=== PATIENT | male | born 1970 | race Caucasian/White ===

== ENCOUNTER → 2016-11-26 | Outpatient (CLI) | payer MEDICARE ==
[~2016-11-26] VITALS: Ht 175.3 cm; Wt 138.5 kg
[~2016-11-26] MED LIST: DILANTIN30 MG
[2016-11-26 15:42] VITALS: BP 136/90
== END ==
LOC: LAB 11:56 → AMSURD 11:56
DX: M79.662 Pain in left lower leg (principal); R79.1 Abnormal coagulation profile; R22.42 Localized swelling, mass and lump, left lower limb
CPT/HCPCS: J1650

== ENCOUNTER → 2016-11-27 | Outpatient (CLI) | payer MEDICARE ==
[2016-11-26 15:42] VITALS: BP 136/90
== END ==
LOC: RAD 10:52
DX: R79.1 Abnormal coagulation profile (principal); M79.89 Other specified soft tissue disorders

== ENCOUNTER → 2019-02-08 | Day surgery (SDC) | payer MEDICARE ==
[2016-11-26 15:42] VITALS: BP 136/90
== END ==
LOC: MSO 08:14
DX: Z12.11 Encounter for screening for malignant neoplasm of colon (principal); I10 Essential (primary) hypertension; E66.9 Obesity, unspecified
CPT/HCPCS: 00812; J2250; J2704; J3010; J7120

== ENCOUNTER 2019-10-25 20:55 | Emergency (ER) | payer MEDICARE ==
[2019-10-25] MEDS ORDERED: MAXZIDE-25MG TA1 TAB PO (21:09)
[2019-10-25] MEDS ORDERED: DILANTIN 100MG100 MG PO (21:09)
[2019-10-25] MEDS ORDERED: PREDNISONE20 M1 PO (22:29)
[2019-10-25] MEDS ORDERED: BENADRYL PO (22:29)
[2019-10-25] MEDS ORDERED: ZYRTEC10 M3 PO (22:29)
[2019-10-25 22:35] VITALS: BP 161/94
== END 2019-10-25 22:36 | disposition home or self-care (01) ==
LOC: ED 20:55
DX: T63.461A Toxic effect of venom of wasps, accidental (unintentional), initial encounter (principal); I10 Essential (primary) hypertension; Z23 Encounter for immunization
CPT/HCPCS: 90714; J7512

== ENCOUNTER 2021-04-27 18:37 | Emergency (ER) | payer MEDICARE ==
[~2021-04-27] VITALS: Ht 175.3 cm; Wt 150.0 kg
[~2021-04-27 18:37] MED LIST changes: +BENADRYL PO; +DILANTIN 100MG100 MG PO; +MAXZIDE-25MG TA1 TAB PO; +PREDNISONE20 M1 PO; +ZYRTEC10 M3 PO
[2021-04-27 19:22] LABS: HEMATOCRIT 41.7 % (42.0-52.0); HEMOGLOBIN 13.5 g/dL (13.5-18.0); LYMPH# 1.12 K/mm3 (1.50-4.00); MEAN CELL VOLUME 86 fl (78-100); MEAN CORPUSCULAR HEMOGLOBIN 28 pg (27-31); MEAN CORPUSCULAR HGB CONC 32 g/dL (33-37); MEAN PLATELET VOLUME 9.3 fl (7.4-10.4); MONO # 0.31 K/mm3 (0.20-0.80); NEU # 3.19 K/mm3 (1.40-6.50); PLATELET COUNT 124 K/mm3 (130-400); RED BLOOD COUNT 4.88 M/mm3 (4.20-5.60); RED CELL DISTRIBUTION WIDTH 13.6 % (11.5-14.5); WHITE BLOOD COUNT 4.6 K/mm3 (4.8-10.8)
[2021-04-27 19:31] LABS: ALBUMIN 3.5 g/dL (3.5-5.0)
[2021-04-27 19:32] LABS: POTASSIUM 3.3 mmol/L (3.5-5.1)
[2021-04-27 19:33] LABS: CALCIUM 8.6 mg/dL (8.3-10.5)
[2021-04-27 19:34] LABS: TOTAL PROTEIN 7.8 g/dL (6.4-8.3)
[2021-04-27 19:36] LABS: TOTAL BILIRUBIN 0.4 mg/dL (0.2-1.2)
[2021-04-28] VITALS: BP 118/88
== END 2021-04-28 | disposition short-term general hospital (02) ==
LOC: ED 18:37
PROVIDERS: Family Medicine
DX: R05.9 Cough, unspecified (principal)
CPT/HCPCS: J0696; J1100; J1650; J7050

== ENCOUNTER 2021-06-26 10:06 | Outpatient (RCR) | payer MEDICARE | END 2021-07-19 | disposition home or self-care (01) | LOC: PT | DX: G93.41 Metabolic encephalopathy (principal); R53.1 Weakness; U09.9 Post COVID-19 condition, unspecified ==

== ENCOUNTER → 2021-06-26 | Outpatient (CLI) | payer MEDICARE ==
[~2021-06-26] MED LIST changes: +BUSPIRONE HYDRO10 MG PO; +FAMOTIDINE20 MG PO; +KEPPRA SUSP100 MG/ML PO; +LOPRESSOR 550 MG/TAB PO; +MELATIN 3 MG-11 TAB PO
== END ==
LOC: RAD 13:30
DX: R91.1 Solitary pulmonary nodule (principal)
CPT/HCPCS: Q9967

== ENCOUNTER 2021-07-04 06:00 | Outpatient (RCR) | payer MEDICARE ==
[2021-06-20 21:10] VITALS: BP 133/76
[2021-06-21 06:06] VITALS: BP 109/47
[2021-06-22 15:48] VITALS: BP 154/86
[2021-06-22 22:40] VITALS: BP 123/60
[2021-06-23 06:05] VITALS: BP 122/83
[2021-06-23 14:23] VITALS: BP 115/76
[2021-06-23 21:58] VITALS: BP 114/69
[2021-06-24 06:10] VITALS: BP 113/75
[2021-06-24 14:12] VITALS: BP 117/62
[2021-06-24 22:00] VITALS: BP 130/78
[2021-06-25 06:10] VITALS: BP 123/81
[2021-06-25 14:34] VITALS: BP 102/44
[2021-06-25 22:02] VITALS: BP 133/80
[2021-06-26 06:15] VITALS: BP 123/80
[2021-06-26 13:58] VITALS: BP 127/78
[2021-06-26 21:53] VITALS: BP 135/82
[2021-06-27 06:05] VITALS: BP 115/76
[2021-06-27 14:23] VITALS: BP 122/79
[2021-06-27 22:07] VITALS: BP 157/83
[2021-06-28 06:18] VITALS: BP 134/79
[2021-06-28 14:09] VITALS: BP 135/87
[2021-06-28 22:20] VITALS: BP 133/84
[2021-06-29 06:02] VITALS: BP 117/81
[2021-06-29 15:01] VITALS: BP 120/80
[2021-06-29 22:00] VITALS: BP 126/84
[2021-06-30 06:05] VITALS: BP 138/94
[2021-06-30 14:28] VITALS: BP 132/84
[2021-06-30 22:16] VITALS: BP 121/77
[2021-07-01 06:20] VITALS: BP 131/84
[2021-07-01 14:39] VITALS: BP 124/76
[2021-07-01 22:20] VITALS: BP 138/84
[2021-07-02 07:31] VITALS: BP 126/78
[2021-07-02 14:23] VITALS: BP 124/81
[2021-07-02 22:16] VITALS: BP 127/81
[2021-07-03 06:10] VITALS: BP 120/83
[2021-07-03 13:55] VITALS: BP 129/85
[2021-07-03 22:14] VITALS: BP 118/7
[~2021-07-04] VITALS: Ht 175.3 cm; Wt 150.0 kg
[2021-07-04 06:06] VITALS: BP 104/74
== END 2021-07-19 ==
LOC: AMSURD
DX: Z79.899 Other long term (current) drug therapy (principal)
CPT/HCPCS: J0690

== ENCOUNTER → 2021-07-06 | Outpatient (CLI) | payer MEDICARE ==
[~2021-07-06] VITALS: Ht 175.3 cm; Wt 150.0 kg
[2021-07-06 15:26] VITALS: BP 122/78
== END ==
LOC: AMSURD 15:00
DX: Z45.2 Encounter for adjustment and management of vascular access device (principal)

== ENCOUNTER 2021-07-24 13:50 | Outpatient (RCR) | payer MEDICARE | END 2021-08-18 | disposition home or self-care (01) | LOC: PT | DX: G93.41 Metabolic encephalopathy (principal); Z86.16 Personal history of COVID-19 ==

== ENCOUNTER 2021-08-23 13:00 | Outpatient (RCR) | payer MEDICARE | END 2021-09-18 | disposition still patient (30) | LOC: PT | DX: G93.41 Metabolic encephalopathy (principal); J12.82 Pneumonia due to coronavirus disease 2019; U09.9 Post COVID-19 condition, unspecified; R53.1 Weakness ==

== ENCOUNTER 2023-12-22 21:08 | Emergency (ER) | payer MEDICARE ==
[~2023-12-22] VITALS: Ht 175.3 cm; Wt 146.8 kg
[2023-12-22] MEDS ORDERED: TEMOVATE OINT30 GM TOP (21:26)
[2023-12-22] MEDS ORDERED: SEPTRA DS 8001 TAB (21:26)
[2023-12-22] MEDS ORDERED: CEPHALEXIN500 M1 PO (21:26)
[2023-12-22 22:24] LABS: BASO # 0.01 K/mm3 (0.02-0.10); EOS # 0.03 K/mm3 (0.04-0.40); EOS % 0.4 % (0.0-4.0); HEMATOCRIT 41.1 % (42.0-52.0); HEMOGLOBIN 13.3 g/dL (13.5-18.0); LYMPH# 1.45 K/mm3 (1.50-4.00); MEAN CELL VOLUME 88 fl (78-100); MEAN CORPUSCULAR HEMOGLOBIN 28 pg (27-31); MEAN CORPUSCULAR HGB CONC 32 g/dL (33-37); MEAN PLATELET VOLUME 9.3 fl (7.4-10.4); MONO # 0.55 K/mm3 (0.20-0.80); NEU # 6.48 K/mm3 (1.40-6.50); PLATELET COUNT 171 K/mm3 (130-400); RED BLOOD COUNT 4.68 M/mm3 (4.20-5.60); RED CELL DISTRIBUTION WIDTH 13.7 % (11.5-14.5); WHITE BLOOD COUNT 8.6 K/mm3 (4.8-10.8)
[2023-12-22 22:27] LABS: ALBUMIN 3.9 g/dL (3.5-5.0); SODIUM 137 mmol/L (136-145)
[2023-12-22 22:28] LABS: CALCIUM 9.2 mg/dL (8.3-10.5)
[2023-12-22 22:29] LABS: GLUCOSE 144 mg/dL (75-110)
[2023-12-22 22:30] LABS: CARBON DIOXIDE 23 mmol/L (22-29); TOTAL PROTEIN 7.5 g/dL (6.4-8.3)
[2023-12-22 22:31] LABS: TOTAL BILIRUBIN 0.2 mg/dL (0.2-1.2)
[2023-12-22 22:33] LABS: ALCOHOL IN-HOUSE < 10 mg/dL (<10)
[2023-12-22 22:35] LABS: AST-SGOT 27 U/L (5-34)
[2023-12-22 22:36] LABS: ALT/SGPT 21 U/L (0-55)
[2023-12-22 23:08] LABS: URINE WBC 0 /hpf (0-3)
[2023-12-22 23:18] LABS: URINE APPEARANCE CLEAR (CLEAR); URINE BILIRUBIN NEGATIVE (NEGATIVE); URINE BLOOD NEGATIVE (NEGATIVE); URINE COLOR YELLOW (YELLOW); URINE GLUCOSE NEGATIVE (NEGATIVE); URINE KETONE NEGATIVE (NEGATIVE); URINE LEUKOCYTE ESTERASE NEGATIVE (NEGATIVE); URINE NITRATE NEGATIVE (NEGATIVE); URINE PROTEIN(semi-quant) 1+ (NEGATIVE)
[2023-12-22 23:19] LABS: URINE MUCUS PRESENT (NOT PRESENT)
[2023-12-23 00:04] VITALS: BP 102/61
== END 2023-12-23 00:04 | disposition home or self-care (01) ==
LOC: ED 21:08
PROVIDERS: Nurse Practitioner Family
DX: F12.929 Cannabis use, unspecified with intoxication, unspecified (principal)